=== PATIENT | female | born 1985 | race Caucasian/White ===

== ENCOUNTER 2016-08-22 14:54 | Outpatient (CLI) | payer OTHER ==
[2014-09-05 16:58] VITALS: BP 132/74
[2016-08-22 15:22] LABS: BASOPHILS % 0.3 (0.0-1.5); EOSINOPHILS % 2.1 % (0.0-6.8); LYMPHOCYTES # 1.4 # k/uL (0.6-4.0); MEAN CORPUSCULAR HEMOGLOBIN 31.7 pg (28.0-34.0); MONOCYTES # 0.3 # k/uL (0.0-0.9); MONOCYTES % 2.8 % (0.0-11.0); NEUTROPHILS # 9.1 # k/uL (1.4-7.7)
[2016-08-22 15:51] LABS: eGFR (African) > 60; eGFR (Non-African) > 60
== END 2016-08-22 14:55 ==
LOC: LAB 14:54
PROVIDERS: ATTEND Physician Assistant
DX: M25.50 Pain in unspecified joint (principal); R53.82 Chronic fatigue, unspecified
CPT/HCPCS: 36415; 80053; 84443; 85025; 86038; 86431

== ENCOUNTER 2018-07-30 12:00 | Outpatient (CLI) | payer BC ==
[2014-09-05 16:58] VITALS: BP 132/74
[2018-07-30 12:31] LABS: BASOPHILS % 0.6 (0.0-1.5); EOSINOPHILS % 2.4 % (0.0-6.8); MEAN CORPUSCULAR HEMOGLOBIN 31.7 pg (28.0-34.0); MONOCYTES % 4.7 % (0.0-11.0); NEUTROPHILS # 6.3 # k/uL (1.4-7.7)
[2018-07-30 12:56] LABS: eGFR (Non-African) > 60
--- NOTE | 2018-07-30 14:55 | Diagnostic Imaging Report ---
<p>Your browser does not support iframes.</p> TYLER LYNCH [facility] [id number] [facility].[address] [address] Report Submission Date: Jul 30, 2018 12:35:24 PM MACHINE SCALLOP CUTTER Patient Study Name: LLUVIA NUNES Date: Jul 30, 2018 12:24:47 PM MACHINE SCALLOP CUTTER Modality Type: DX Gender: F Description: CHEST 2VIEW : 83 Institution: [facility] Physician: TYLER LYNCH Examination: PA and lateral chest. History: Evaluate lung castro. CHEST TIGHTNESS/PRESSURE X3 DAYS, NO HEART/CHEST HISTORY Findings: PA and lateral views of the chest demonstrates a normal cardiac and mediastinal silhouette. Elevated right hemidiaphragm. No focal infiltrate. No blunting of the costophrenic margins. Osseous structures are appropriate for age. Impression: No acute pulmonary process. Electronically signed on Jul 30, 2018 12:35:24 PM MACHINE SCALLOP CUTTER by: Matty DICKENS
== END 2018-07-30 12:01 ==
LOC: LAB 12:00
PROVIDERS: ATTEND Nurse Practitioner Family
DX: R53.83 Other fatigue (principal); R00.2 Palpitations; R07.89 Other chest pain; R06.02 Shortness of breath
CPT/HCPCS: 36415; 71046; 80053; 82553; 84484; 85025; 85379